=== PATIENT | male | born 1950 | race Caucasian/White ===

== ENCOUNTER 2019-05-23 11:33 | Observation (INO) | payer MEDICARE, BC, OTHER ==
[2019-05-23] MEDS ORDERED: Lidocaine 1% (PF) 30 ML VIAL ONE (11:40)
[2019-05-23 11:48] LABS: #Basophils 0.1 thou/uL (0.0-0.2); #Eosinphils 0.2 thou/uL (0.0-0.7); #Lymphocytes 1.8 thou/uL (1.20-3.40); #Monocytes 0.9 thou/uL (0.11-0.59); #Neutrophils 5.5 thou/uL (1.40-6.50); %Basophils 0.7 % (0.0-1.0); %Eosinophils 1.8 % (0.0-10.0); %Lymphocytes 21.3 % (21.0-51.0); %Monocytes 10.7 % (0.0-10.0); %Neutrophils 65.4 % (42.0-75.0); Hemoglobin 13.4 g/dL (14.0-18.0); Mean Corpuscular HGB CONC 34.5 g/dL (32.0-36.0); Mean Corpuscular Hemoglobin 32.2 pg (27.0-31.0); Mean Corpuscular Volume 93.2 fL (78.0-98.0); Mean Platelet Volume 7.6 fL (7.4-10.4); Platelet Count 261 thou/uL (130-400); RBC Distribution Width 11.6 % (11.5-14.5); Red Blood Cell (RBC) Count 4.16 mill/uL (4.70-6.10); White Blood Cell (WBC) Count 8.4 thou/uL (4.8-10.8)
[2019-05-23 11:57] LABS: PTT 25.5 SEC (22.9-36.1); Prothrombin Time 12.8 SEC (12.0-14.7)
--- NOTE | 2019-05-23 11:57 | RAD ---
Chest AP view INDICATION: Chest pain COMPARISON: None FINDINGS: Lungs:The lungs are clear Cardiac silhouette pulmonary vasculature:There is moderate cardiomegaly and post-CABG change. There i s a loop recorder overlying the left chest wall. Pleural spaces:Left costophrenic angle is excluded. Right costophrenic angle is sharp. No pneumothora x. Upper abdomen:No abnormality seen. Osseous structures: No acute osseous abnormality. Additional findings:None. IMPRESSION: Moderate cardiomegaly without overt evidence of cardiac decompensation
[2019-05-23] MEDS ORDERED: Heparin 1,000 UNITS/ML VIAL ONE (12:02)
[2019-05-23 12:11] LABS: ALT (SGPT) 13 U/L (8-55); AST (SGOT) 16 U/L (5-34); Alkaline Phosphatase 75 U/L (40-150); Anion Gap 14 mmol/L (10-20); BUN (Urea Nitrogen) 14 mg/dL (8.4-25.7); Bilirubin, Total 0.6 mg/dL (0.2-1.2); Calc. Creatinine Clearance 0 mL/min (70-130); Calcium 9.2 mg/dL (7.8-10.44); Carbon Dioxide 21 mmol/L (23-31); Chloride 105 mmol/L (98-107); Estimated GFR-MDRD 44; Globulin 2.2 g/dL (2.4-3.5); Glucose 130 mg/dL (80-115); Lipase 11 U/L (8-78); Potassium 4.5 mmol/L (3.5-5.1); Protein, Total 6.2 g/dL (5.8-8.1); Sodium 135 mmol/L (136-145)
--- NOTE | 2019-05-23 14:24 | PDOC.FPRHP ---
- History of Present Illness Chief Complaint: Passed out History of Present Illness: This 69-yo male with CAD s/p CABG presents s/p syncope at the [facility] place. He reports drinking one coffee and one bottle of water today, did not think he was dehydrated. He describes chest pain currently that is a 4-5/10 right now, described as pressure and has had it for 2-3 days. Has had a CABG, 3 stents placed, and 3 CVA's. This chest pain feels like his usual chest pain which radiates to a pain in his left neck. He did not try the nitro that he has at home because it gives him a headache. Patient reports one episode of vomiting when he came to after his syncope. Denies nausea prior to that. Denies diaphoresis. Denies history of seizures or ever having passed out like this before. Denies diagnosis of heart failure. However, he reports he is "always short of breath." Patient lives in [facility] and sees a sheet rock layer there. He was here helping his sons move. ED Course: EMS called and brought patient to ED. He did receive aspirin in the EMS on the way here. He was noted by EMS to have elevations in leads II, III, and aVF. Thought to be STEMI; however, repeat EKGs in ER did not show STEMI. Cardiology called and Dr. Stevens ordered heparin bolus. Patient was hypotensive, so nitro was held. Fluids were given. - Allergies/Adverse Reactions Allergies Allergy/AdvReac Type Severity Reaction Status Date / Time No Known Drug Allergies Allergy Verified 05/23/19 16:32 - Home Medications Medication Instructions Recorded Confirmed Type Amlodipine [Norvasc] 10 mg PO DAILY 05/23/19 05/23/19 History Clopidogrel Bisulfate [Clopidogrel] 75 mg PO DAILY 05/23/19 05/23/19 History Famotidine 20 mg PO BID 05/23/19 05/23/19 History Lisinopril 10 mg PO DAILY 05/23/19 05/23/19 History Metoprolol Succinate 12.5 mg PO DAILY 05/23/19 05/23/19 History Pantoprazole Sodium 40 mg PO DAILY 05/23/19 05/23/19 History Ranolazine [Ranolazine ER] 2 tab PO BID 05/23/19 05/23/19 History Rosuvastatin Calcium 20 mg PO HS 05/23/19 05/23/19 History diphenhydrAMINE HCl 25 mg PO HS PRN 05/23/19 05/23/19 History [Diphenhydramine HCl] - History PMHx:CAD s/p CABG 3V, HTN, HLD, CVA x 3 PSHx: CABG, 3 Stents placed FHx:Father of lung cancer, brother-CABG 4V Social:denies smoking, drinks one beer a year, denies other drug use - Review of Systems General: denies: fever/chills, weight/appetite/sleep changes, night sweats, fatigue Eyes: reports: other (denies current headache). denies: vision changes ENT: denies: nasal congestion (denies sore throat) Respiratory: reports: shortness of breath (reports SOB at baseline), exercise intolerance. denies: cough, congestion Cardiovascular: reports: chest pain, orthopnea. denies: edema Gastrointestinal: reports: vomiting, abdominal pain. denies: nausea Genitourinary: denies: incontinence, dysuria Skin: reports: other (denies tongue/lip lacerations). denies: jaundice Musculoskeletal: denies: stiffness, swelling Neurological: reports: syncope, weakness (patient reports residual left sided weakness from previous strokes). denies: seizure - Vital signs BP: 121/70 HR: 67 RR: 16 Tmax: 97.6 Pox: 97% on RA Wt: 90.86 Kg - Physical Exam Constitutional: awake, alert and oriented, well developed HEENT: normocephalic and atraumatic, PERRLA, EOMI Neck: supple, FROM, no thyromegaly Chest: no-tender to palpation, no lesions Heart: RRR, normal S1/S2, no murmurs/rubs/gallops Lungs: CTAB, no respiratory distress, good air movement Abdomen: soft, non-tender, bowel sounds present, no masses/distention Musculoskeletal: normal structure, normal tone, ROM grossly normal Neurological: CN II-XII intact, DTRs 2+ Skin: no rash/lesions, capillary refill <2 seconds Heme/Lymphatic: no unusual bruising or bleeding, no petechia Psychiatric: normal mood and affect, good judgment and insight FMR H&P: Results - Labs Result Diagrams: 05/24/19 04:48 05/24/19 04:48 Lab results: WBC 8.4 thou/uL (4.8-10.8) 05/23/19 11:36 Hgb 13.4 g/dL (14.0-18.0) L 05/23/19 11:36 Hct 38.8 % (42.0-52.0) L 05/23/19 11:36 MCV 93.2 fL (78.0-98.0) 05/23/19 11:36 Plt Count 261 thou/uL (130-400) 05/23/19 11:36 Neutrophils % 65.4 % (42.0-75.0) 05/23/19 11:36 Sodium 135 mmol/L (136-145) L 05/23/19 11:36 Potassium 4.5 mmol/L (3.5-5.1) 05/23/19 11:36 Chloride 105 mmol/L (98-107) 05/23/19 11:36 Carbon Dioxide 21 mmol/L (23-31) L 05/23/19 11:36 BUN 14 mg/dL (8.4-25.7) 05/23/19 11:36 Creatinine 1.57 mg/dL (0.7-1.3) H 05/23/19 11:36 Glucose 130 mg/dL (80-115) H 05/23/19 11:36 Calcium 9.2 mg/dL (7.8-10.44) 05/23/19 11:36 Total Bilirubin 0.6 mg/dL (0.2-1.2) 05/23/19 11:36 AST 16 U/L (5-34) 05/23/19 11:36 ALT 13 U/L (8-55) 05/23/19 11:36 Alkaline Phosphatase 75 U/L (40-150) 05/23/19 11:36 Serum Total Protein 6.2 g/dL (5.8-8.1) 05/23/19 11:36 Albumin 4.0 g/dL (3.4-4.8) 05/23/19 11:36 Lipase 11 U/L (8-78) 05/23/19 11:36 - EKG Interpretation EKG: NSR, no ST elevations - Radiology Interpretation Chest x-ray Status: report reviewed by me Additional comment: moderate cardiomegaly w/o evidence of acute decompensation FMR H&P: A/P - Problem List (1) Unstable angina Current Visit: Yes Status: Acute (2) Syncope and collapse Current Visit: Yes Status: Acute Code(s): R55 - SYNCOPE AND COLLAPSE (3) Hypertension Current Visit: Yes Status: Chronic Code(s): I10 - ESSENTIAL (PRIMARY) HYPERTENSION (4) CAD (coronary artery disease) Current Visit: Yes Status: Chronic Code(s): I25.10 - ATHSCL HEART DISEASE OF [place] CORONARY ARTERY W/O ANG PCTRS - Plan 69-yo male w/ chronic CAD, presenting for: 1. Chest pain, rule out ACS - telemetry, observation - trend troponins. Initial negative - TSH = 0.1264 - Hgb A1C = 5.4 - Lipid panel pending - Magnesium, Phosphorus pending - nitro prn. Patient's pain improved after receiving nitro paste on the floor. - Therapeutic LVX: 1mg/kg BID subQ - Cardiology consult. Appreciate recs. 2. Syncope - will work up other potential causes of syncope: carotid doppler u/s - Orthostatic vital signs - May consider other testing tomorrow 3. HTN - continue home meds 4. CAD - continue home meds Code status: FULL Nazia Rogers MD PGY-1 Disposition/LOS: Telemetry, Observation. FMR H&P: Upper Level - Plan 69 yo gentleman with extensive heart disease and hx of CVA presents with typical chest pain that feels like prior UT pain, without ekg changes, and negative troponin so far, admitted for typical chest pain suspected unstable angina. Vitals: HR 68, BP 124/79, RR 17, 99 PE: NAD 2/6 systolic murmur, NSR CTAB bilaterally abdomen soft nondistended nontender a&0x3 Cr: 157 tropon <.01 A/P: Typical Chest pain- -suspect unstable angina with negative trop and no ST changes on EKG, however pain feels like prior chest pain and is constant not relieved at rest. Pt received heparin bolus in the ER and was having active pain when we saw him. We started him on nitro paste and ther lovenox to help better manage his pain and spoke with Dr. Stevens. He is NPO at midnight and will await cards recs. Hopefully his chest pain will resolve and he can follow-up with his sheet rock layer in [place], however, we did request records from his sheet rock layer in the event that he gets worse. We will continue to trend troponins and will get serial EKGS if chest pain worsens. We also ordered a tsh, mg, phosph, and hba1c. He was given aspirin 324mg, and we will continue his aspirin and plavix that he was already on. Syncope- -cardiogenic vs dehydration. We ordered orthostatic blood pressure, echo, carotid US b/l and the above mentioned labs. This event did not present like a seizure or like a vasovagal episode. We will monitor him on telemetry. DVT-ther lovenox Code-FULL Swati Thomason MD, PGY-3 Addendum - Attending - Attending Attestation Date/Time: 05/23/19 [id number] I personally evaluated the patient and discussed the management with Dr. Gillis. I agree with the History, Examination, Assessment and Plan documented above with any addition or exceptions noted below. The patient presented to the ER after a syncopal episode and squeezing chest pain that felt similar to previous heart attacks. The patient has had a cabg and stents. His last cath was in December 2017. The patient states he was standing in line for over [address] [facility]. Stevens was consulted in the ER. Will get cardiac enzymes, repeat ekg. Pt is receiving heparin. Still has chest pain, we will start with nitropaste. For syncope, checking orthostatics, carotid doppler and echo.
--- NOTE | 2019-05-23 14:43 | CON ---
DATE OF CONSULTATION: 05/23/2019 The patient was seen in the emergency room acutely on 05/23/2019. INDICATION FOR CONSULTATION: A 69-year-old gentleman with acute rik-GF-hdixktc elevation myocardial infarction, which was originally thought to be an ST- segment elevation myocardial infarction. HISTORY OF PRESENT ILLNESS: This is a very pleasant 69-year-old gentleman, who is here from [place], [place], helping his son's move, was waiting in line at the [facility] for about 45 minutes, when suddenly, he apparently had a syncopal episode. 911 was called. He refused to go to the emergency room and then they were called back as he has been complaining of some chest discomfort. According to the EMS records, he had some chest discomfort. EKG was obtained. He has slight elevation in lead III, but no significant ST-segment elevation was noted. There was no evidence of arrhythmias. After talking to the sons of the patient, he has had some episodes of syncope in the past, where if he gets too hot, at last time he was out in the yard working about 3 years ago in the heat and he had another syncopal episode and apparently he has had other episodes also in the past associated with being overheated. At this time, he still has some chest discomfort, but EKG is relatively unremarkable. The repeat EKG also shows no significant ST-segment elevations. He does have history of hypertension, hypercholesterolemia, but no history of diabetes or tobacco abuse. family history is noncontributory. He has had bypass surgery x4 in [place], [place] in 2015. He has had 3 stents placed, the last one was done in [place], apparently last year. His equipment processer storage there is Dr. Morales Huerta, we will try to obtain records from this physician. PAST MEDICAL HISTORY: Significant for the coronary artery disease as noted above. He has had abdominal surgery due to hiatal hernia, bypass surgery. He has had a CVA in the past according to the records, he has had an appendectomy. implantable Loop recorder. SOCIAL HISTORY: He is . He has children, who are alive and well. No alcohol or tobacco abuse. FAMILY HISTORY: Noncontributory. ALLERGIES: NONE. MEDICATIONS: He is taking Plavix, and we will review the other medications. At this time, he is uncertain of the names. We will try to ascertain the medications. He is also taking; 1. Metoprolol. 2. Amlodipine. 3. Lisinopril. 4. He takes Ranexa. 5. He also takes pantoprazole as well as Crestor. REVIEW OF SYSTEMS: A 12-point review of system unremarkable except he wears glasses. He has occasional ankle swelling. Otherwise, he has been doing very well with his coronary artery disease. PHYSICAL EXAMINATION: GENERAL: Reveals a well-developed, well-nourished gentleman, who is in no acute distress at this time. His pain is only a slight discomfort. VITAL SIGNS: Blood pressure 120/78, heart rate is 66 and regular, respiratory rate 16. HEENT: Shows head to be normocephalic and atraumatic. Carotid pulses are present. I do not hear any bruits. CHEST: Clear to auscultation without rales, rhonchi, or wheezing. CARDIOVASCULAR: Reveals a regular rate and rhythm. Normal S1 and S2. There is no S3 or S4. There were no significant murmurs, heaves, thrills, bruits, or rubs. ABDOMEN: Obese, with positive bowel sounds. He has a well-healed midline surgical incision as well as a well-healed midline sternotomy incision. EXTREMITIES: Showed no clubbing, cyanosis, or edema at this time. Pedal pulses are present. NEUROLOGIC: Appears to be intact. SKIN: Warm and dry at this time. DIAGNOSTIC DATA: EKG shows a normal sinus rhythm with mild ST-segment elevation in lead III, but otherwise unremarkable. LABORATORY DATA: Still pending. IMPRESSION: 1. An elderly gentleman, 69 years old with possible pkh-YC-xgbyxak elevation myocardial infarction, we will continue to rule out for the patient. EKG is unremarkable at this time. We will check the enzymes. We will admit the patient for observation due to his coronary artery disease. 2. History of syncope. This may be due to dehydration or hypotension in this patient who was standing in line for 45 minutes. There is no indication he has had any arrhythmias, but this will be monitored. Check Loop recorder. 3. History of hypertension. This is under good control at this time. We will monitor with the medications, we will resume his home medications. 4. History of hypercholesterolemia. We will also suggest we continue his Lipitor. Otherwise, the patient appears to be stable at this time and we will continue to follow. Should he needs to go to the ear mold laboratory technician, then we will arrange that later today. Job ID: [id number] MTDD
[2019-05-23 15:11] LABS: Troponin I Less than 0.010 ng/mL (< 0.028)
[2019-05-23] MEDS ORDERED: Ondansetron ODT 4 MG TAB SL PRN (15:56)
[2019-05-23] MEDS ORDERED: Ondansetron PF 4 MG/2 ML Vial IVP PRN (15:56)
[2019-05-23] MEDS ORDERED: Nitroglycerin 2% Ointment 1 INCH/1 GM Packet TOP SCH (16:20)
[2019-05-23 16:36] VITALS: BMI 29.5
[2019-05-23] MEDS ORDERED: Senokot S 8.6-50 MG TAB PO PRN (17:22)
[2019-05-23] MEDS ORDERED: Acetaminophen 325 MG TAB PO PRN (17:22)
[2019-05-23] MEDS ORDERED: diphenhydrAMINE 25 MG CAP PO PRN (17:34)
[2019-05-23 18:32] LABS: Hemoglobin A1c 5.4 % (4.0-6.0)
[2019-05-23 18:37] LABS: Cardiac Risk 3.2 (Less than 4.5)
[2019-05-23 18:43] LABS: Magnesium 2.1 mg/dL (1.6-2.6); Phosphorus 2.3 mg/dL (2.3-4.7)
[2019-05-23 18:45] LABS: Troponin I Less than 0.010 ng/mL (< 0.028)
--- NOTE | 2019-05-23 19:34 | ULT ---
CAROTID DUPLEX ULTRASOUND: 05/23/19 INDICATION: History of syncopal episode. COMPARISON: None. FINDINGS: There is mild intimal thickening of the common carotid arteries with mild atherosclerotic plaque invo lving the carotid bulbs and internal carotid arteries bilaterally. Peak systolic velocity involving the right ICA was 62.8 cm/s and within the right CCA was 93.2 cm/s. The right IC to CC ratio was 0.67. Peak systolic velocity involving the left ICA was 70.4 cm/s and within the right CCA was 82.0 cm/s. T he right IC to CC ratio was 0.86. Antegrade flow is seen within both vertebral arteries. IMPRESSION: No hemodynamically significant stenosis. POS: BH
[2019-05-23] MEDS: Enoxaparin Sodium 100 MG/ML SYRINGE SC SCH (20:40)
[2019-05-23] MEDS: Famotidine 20 MG TAB PO SCH (20:41)
[2019-05-23] MEDS ORDERED: Enoxaparin Sodium 60 MG/0.6 ML SYRINGE SC SCH (21:00)
[2019-05-23] MEDS ORDERED: Enoxaparin Sodium 30 MG/0.3 ML SYRINGE SC SCH (21:00)
[2019-05-23] MEDS ORDERED: Rosuvastatin 20 MG TAB PO SCH (21:00)
[2019-05-23] MEDS: Nitroglycerin 2% Ointment 1 INCH/1 GM Packet TOP SCH (21:39)
[2019-05-24] MEDS: Nitroglycerin 2% Ointment 1 INCH/1 GM Packet TOP SCH ×2 (04:14→12:43)
[2019-05-24 05:27] LABS: #Basophils 0.1 thou/uL (0.0-0.2); #Eosinphils 0.2 thou/uL (0.0-0.7); #Lymphocytes 1.9 thou/uL (1.20-3.40); #Neutrophils 8.1 thou/uL (1.40-6.50); %Basophils 0.6 % (0.0-1.0); %Eosinophils 1.7 % (0.0-10.0); %Monocytes 8.9 % (0.0-10.0); %Neutrophils 71.8 % (42.0-75.0); Hemoglobin 13.6 g/dL (14.0-18.0); Mean Corpuscular HGB CONC 34.3 g/dL (32.0-36.0); Mean Corpuscular Hemoglobin 32.1 pg (27.0-31.0); Mean Corpuscular Volume 93.4 fL (78.0-98.0); Mean Platelet Volume 7.9 fL (7.4-10.4); Platelet Count 259 thou/uL (130-400); RBC Distribution Width 11.6 % (11.5-14.5); Red Blood Cell (RBC) Count 4.25 mill/uL (4.70-6.10); White Blood Cell (WBC) Count 11.3 thou/uL (4.8-10.8)
[2019-05-24 05:28] LABS: Hemoglobin 13.5 g/dL (14.0-18.0); Platelet Count 257 thou/uL (130-400)
[2019-05-24 05:52] LABS: ALT (SGPT) 14 U/L (8-55); AST (SGOT) 16 U/L (5-34); Albumin 3.8 g/dL (3.4-4.8); Alkaline Phosphatase 65 U/L (40-150); Anion Gap 10 mmol/L (10-20); BUN (Urea Nitrogen) 13 mg/dL (8.4-25.7); Bilirubin, Total 0.5 mg/dL (0.2-1.2); Calc. Creatinine Clearance 77 mL/min (70-130); Calcium 9.5 mg/dL (7.8-10.44); Carbon Dioxide 25 mmol/L (23-31); Chloride 106 mmol/L (98-107); Estimated GFR-MDRD 62; Globulin 2.5 g/dL (2.4-3.5); Glucose 97 mg/dL (80-115); Potassium 4.6 mmol/L (3.5-5.1); Protein, Total 6.3 g/dL (5.8-8.1); Sodium 136 mmol/L (136-145)
[2019-05-24 06:06] LABS: T4 7.6 ug/dL (4.87-11.72)
--- NOTE | 2019-05-24 06:14 | PDOC.FM ---
- Subjective Subjective: VSS. Orthostatics negative. AFebrile. Stable on telemetry overnight. Patient is feeling much better this morning. Denies chest pain. No SOB. He would like to eat something if possible. His WBC is increased this morning mildly to 11.3. His last cardiac cath was a little over one year ago. - Objective MAR Reviewed: Yes Vital Signs & Weight: Vital Signs (12 hours) Temp Pulse Resp BP BP BP BP 05/24/19 04:08 98.2 F 66 16 127/69 05/23/19 22:33 98.3 F 64 16 120/67 05/23/19 18:48 98.5 F 63 15 113/65 118/68 120/63 Pulse Ox 05/24/19 04:08 95 05/23/19 22:33 96 05/23/19 18:48 93 L Weight Weight 90.86 kg I&O: 05/22/19 05/23/19 05/24/19 06:59 06:59 06:59 Intake Total 420 Output Total 500 Balance -80 Result Diagrams: 05/24/19 04:48 05/24/19 04:48 Phys Exam - Physical Examination Constitutional: NAD Respiratory: no wheezing, clear to auscultation bilateral Cardiovascular: RRR (2/6 systolic murmur over LSB, unchanged from previous exam) Gastrointestinal: soft, positive bowel sounds Musculoskeletal: no edema, pulses present (DP 2+) Neurological: non-focal Psychiatric: normal affect, A&O x 3 Dx/Plan (1) Unstable angina Status: Acute (2) Syncope and collapse Code(s): R55 - SYNCOPE AND COLLAPSE Status: Acute (3) Hypertension Code(s): I10 - ESSENTIAL (PRIMARY) HYPERTENSION Status: Chronic (4) CAD (coronary artery disease) Code(s): I25.10 - ATHSCL HEART DISEASE OF [place] CORONARY ARTERY W/O ANG PCTRS Status: Chronic - Plan Plan: 69-yo male w/ chronic CAD, presenting for: 1. Chest pain, rule out ACS - telemetry, observation - Troponin negative x3 - ECHO today - TSH = 0.1264--> Free T4 pending - Hgb A1C = 5.4 - Lipid panel WNL - Magnesium, Phosphorus WNL - nitro prn. Patient's pain improved after receiving nitro paste on the floor. - Therapeutic LVX: 1mg/kg BID subQ - F/U Cardiology consult. Appreciate recs. - Rec f/u w/ home adult daycare coordinator and PCP this week. 2. Syncope - Patient's creatinine from 1.57 down to 1.16. It is possible he was simply dehydrated yesterday as a cause of his syncope. - carotid doppler u/s: no hemodynamically significant stenosis - Orthostatic vital signs: negative - Encourage oral intake. 3. HTN - continue home meds 4. CAD - continue home meds Code status: FULL Nazia Rogers MD PGY-1 Addendum - Attending - Attending Attestation Date/Time: 05/24/19 1014 I personally evaluated the patient and discussed the management with Dr. Rogers. I agree with the History, Examination, Assessment and Plan documented above with any addition or exceptions noted below. The patient is feeling better. Chest pain is resolved. Will get stress test today and interrogate his loop recorder.
[2019-05-24] MEDS ORDERED: Amlodipine 10 MG TAB PO SCH (09:00)
[2019-05-24] MEDS ORDERED: Clopidogrel Bisulfate 75 MG TAB PO SCH (09:00)
[2019-05-24] MEDS ORDERED: Lisinopril 10 MG TAB PO SCH (09:00)
[2019-05-24] MEDS: Famotidine 20 MG TAB PO SCH (09:15)
[2019-05-24] MEDS: Enoxaparin Sodium 100 MG/ML SYRINGE SC SCH (09:15)
[2019-05-24] MEDS ORDERED: ADENOSINE 60 MG/20 ML VIAL ONE (10:19)
--- NOTE | 2019-05-24 14:02 | NM ---
CARDIAC SPECT: CLINICAL HISTORY: 69-year-old male with syncope, coronary artery disease, CABG, stent placement, stroke, hypertension, and dyslipidemia. TECHNIQUE: A myocardial perfusion scan was performed using the single isotope one day protocol with technetium-9 9m sestamibi. 10 mCi were injected intravenously for the rest exam followed by 32 mCi for the stress exam. Pharmacologic stress with Adenosine was monitored and interpreted by Jerry Dai NP. FINDINGS: Homogeneous tracer distribution is seen in the myocardial segments on stress and rest images without fixed or reversible defects. GATED SPECT LVEF: 73%. WALL MOTION EXAM: Normal. IMPRESSION: Normal myocardial perfusion scan. POS: [place]
--- NOTE | 2019-05-24 14:26 | PDOC.CTH ---
Cardiology Progress Note - Subjective The pt seen and examined. No overnight events. No cardiac complaints. - Objective Vital Signs Temp Pulse Resp BP BP BP Pulse Ox 05/24/19 09:15 66 05/24/19 07:48 98.4 F 66 15 118/70 117/73 115/63 94 L 05/24/19 04:08 98.2 F 66 16 127/69 95 Weight 200 lb 5 oz 05/23/19 05/24/19 05/25/19 06:59 06:59 06:59 Intake Total 420 Output Total 500 500 Balance -80 -500 - Physical Examination General/Neuro: alert & oriented x3 Neck: no JVD present Lungs: CTA Heart: RRR Abdomen: soft Extremities: other: (No edema) - Telemetry Telemetry Rhythm: SR - Labs Result Diagrams: 05/24/19 04:48 05/24/19 04:48 Troponin/CKMB Troponin I Less than 0.010 ng/mL (< 0.028) 05/23/19 18:05 - Assessment/Plan 1. S/p syncopal episode after standing for 45 mins - stress test showed normal. LINQ interrogation showed some short episodes of SVTs during HS, but not daytime; His symptoms may be 2/2 dehydration or hypotension; He denied any near syncopal episode during this hospitalization. 2. CAD with hx of CABG - On BRIGITTE, Plavix, ASA, and Statin; will resume Metoprolol 12.5mg qd. 3. HTN - His BP with Lisinoprol 10mg qd, Norvasc 10mg qd, and no BBlocker has been low; will decrease Norvasc to 5mg qd and resume Metoprolol 12.5mg qd. 4. HLD - On statin MAR reviewed * From Cardiac standpoint, the pt is stable to d/c home. * The pt will f/u with Dr Morales Huerta, [place], [place] within 2 wks. Review of Systems - Review of Systems Constitutional: reports: no symptoms reported EENTM: reports: no symptoms reported Respiratory: reports: no symptoms reported Cardiac (ROS): reports: no symptoms reported ABD/GI: reports: no symptoms reported : reports: no symptoms reported
[2019-05-24 15:51] VITALS: BP 117/68; TEMP 97.8
[2019-05-25] MEDS ORDERED: Amlodipine 5 MG TAB PO SCH (09:00)
--- NOTE | 2019-05-26 10:03 | DIS ---
DATE OF ADMISSION: 05/23/2019 DATE OF DISCHARGE: 05/24/2019 ADMITTING ATTENDING: Dr. Yu DISCHARGE ATTENDING: Dr. Yu RESIDENT: Nazia Rogers MD CONSULT: Cardiology. PROCEDURES: 1. Chest x-ray. 2. Carotid Doppler study. 3. Nuclear stress test. 4. Echocardiogram. PRIMARY DIAGNOSES: 1. Syncopal episode secondary to dehydration. 2. Rule out myocardial infarction. SECONDARY DIAGNOSES: 1. Hypertension. 2. Coronary artery disease. 3. Subclinical hypothyroidism DISCHARGE MEDICATIONS: Amlodipine 5 mg p.o. daily. Discontinued medications: Amlodipine 10 mg p.o. daily. HISTORY OF PRESENT ILLNESS/HOSPITAL COURSE: This pleasant 69-year-old male from [place], [place] has a past medical history of coronary artery disease, status post double bypass. He presented to the emergency room after having an episode of syncope while standing in line at a non-air conditioned [employer] facility. He thought he might not have been adequately hydrated that day. However, he also experienced chest pain, which he described as pressure that had been ongoing for the past 2 to 3 days. He has had a coronary artery bypass graft, 3 cardiac stents placed, and has had 3 CVAs. His chest pain felt like his usual chest pain, which radiated to his left neck. He did not take the nitroglycerin he was prescribed the past couple of days because he experiences a prominent headache when he takes it. He had one episode of vomiting after he regained consciousness from his syncope. He denied nausea and diaphoresis. The patient denied any history of seizures and prior episodes of syncope. He endorsed constantly being short of breath from his chronic disease. The patient has a nurse examiner and primary care physician in [place]; he was here helping his sons relocate. When EMS arrived, the patient received aspirin and was thought to have ST elevation in inferior leads on EKG. However, the repeat EKGs in the emergency department did not show ST elevations. Dr. Stevens of Cardiology ordered a heparin bolus for the patient because the patient was hypotensive. The patient was resuscitated with fluids. The day following admission, the patient's troponins were found to be negative x3. He was risk stratified and found to have a hemoglobin A1c of 5.4%. His lipid panel was within normal limits. Magnesium and phosphorus were normal. Of note, the patient had a TSH value of 0.1264. His free T4 was within normal limits, giving him a diagnosis of subclinical hypothyroidism. The patient's pain improved after receiving nitro paste on the telemetry floor. After the heparin bolus, he was given therapeutic Lovenox. A carotid Doppler ordered for his syncope was negative. Orthostatic vital signs were also negative. His echocardiogram revealed an ejection fraction of 60% to 65%. He had mild aortic valve calcification without any evidence of aortic stenosis. Patient had a loop recorder which was interrogated. No evidence of arrhythmia or electric cardiac disturbance was seen during the time of his syncope. The patient's pain had much improved as well as his general appearance the day after admission. His symptoms had resolved prior to discharge. DISPOSITION: Stable. DISCHARGE INSTRUCTIONS: 1. Location: Home. 2. Diet: Heart healthy. 3. Activity: As tolerated. 4. Followup: Follow up with PCP in [place] within 1 week. We recommend further evaluation of the patient's subclinical hypothyroidism. Follow up with nurse examiner in [place] within 1 week. Nazia Rogers MD PGY-1 Job ID: [id number] MTDD
== END 2019-05-24 16:53 | disposition home or self-care (01) ==
LOC: ERS 11:33 → 2SW 16:28
PROVIDERS: ADMIT Family Medicine; ATTEND Family Medicine
DX: R07.89 Other chest pain (principal); E86.0 Dehydration; R55 Syncope and collapse; I25.10 Atherosclerotic heart disease of native coronary artery without angina pectoris; I10 Essential (primary) hypertension; E78.5 Hyperlipidemia, unspecified; Z79.899 Other long term (current) drug therapy; Z95.1 Presence of aortocoronary bypass graft
CPT/HCPCS: 71045; 78452; 80053; 80061; 83036; 83690; 83735; 84100; 84481; 84484 ×2; 85014; 85018; 85025; 85049; 85610; 85730; 93005; 93017; 93306; 93880; 94760 ×3; 96372 ×2; 96374; 99285; A9500; G0378 ×3; 36415; 84436; 84439; 84443; J0153; J1644; J1650; J2001; Q0163